=== PATIENT | male | born 1980 | race Two or more races ===

== ENCOUNTER 2024-10-15 10:36 | Emergency (ER) | payer OTHER ==
[~2024-10-15] VITALS: Ht 180.3 cm; Wt 86.2 kg
[2024-10-15] MEDS ORDERED: KETOROLAC TROMETHAMINE 30 MG VIAL IV ONE (11:00)
[2024-10-15] MEDS ORDERED: FAMOtidine 10 MG/ML (4ML VIAL) IV ONE (11:00)
[2024-10-15] MEDS ORDERED: TAMSULOSIN HCL 0.4 MG CAP PO ONE (11:00)
[2024-10-15] MEDS ORDERED: CEFTRIAXONE SODIUM 1,000 MG VIAL IV ONE (11:00)
[2024-10-15 11:51] LABS: HEMATOCRIT 42.8 % (39.0-48.0); HEMOGLOBIN 14.8 g/dL (13-16.00); MEAN CORPUSCULAR HEMOGLOBIN 30.4 pg (27.00-32.0); MEAN CORPUSCULAR HGB CONC 34.5 g/dl (32.0-36.0); PLATELET COUNT 238 K/uL (150-450); RED BLOOD COUNT 4.87 M/uL (4.00-6.00); RED CELL DISTRIBUTION WIDTH 13.4 % (11.5-14.5)
[2024-10-15 11:53] LABS: PH,URINE 5.5 (5.0-8.0); URINE APPEARANCE Clear; URINE BILIRRUBIN Negative (NEGATIVE); URINE BLOOD Small; URINE COLOR Yellow; URINE GLUCOSE Negative (NEGATIVE); URINE KETONE Negative (NEGATIVE); URINE LEUKOCYTE Negative; URINE NITRATE Negative; URINE PROTEIN Negative (NEGATIVE); URINE UROBILINOGEN 0.2 E.U./dl
[2024-10-15 11:54] LABS: URINE EPITHELIAL CELLS 1.8 uL (0.0-38.8); URINE RBC 5.5 uL (0.0-20.8); URINE WBC 2.5 uL (0.0-23.2)
[2024-10-15 12:11] LABS: URINE BACTERIA 1.2 uL (0.0-1933); URINE CAST 0.44 uL (0.0-1.40)
[2024-10-15 12:19] LABS: ALBUMIN 4.1 gm/dL (3.4-5.0); BILIRUBIN TOTAL 0.33 mg/dL (0.3-1.2); CREATININE SERUM 0.93 mg/dL (0.70-1.30); GFR 87.47; GLOBULINA 3.5 G/DL (2.4-3.5); POTASSIUM 4.35 mEq/L (3.5-5.1); TOTAL PROTEIN 7.6 gm/dL (6.4-8.2)
[2024-10-15 12:21] LABS: INR 1.02; PARTIAL THROMBOPLASTIN TIME 27.6 SECONDS (22.0-34.0); PROTHROMBIN TIME 11.1 SECONDS (9.0-11.5)
[2024-10-15] MEDS ORDERED: NORFLEX100MG PO (12:37)
== END 2024-10-15 13:01 | disposition home or self-care (01) ==
LOC: ER 10:37
PROVIDERS: General Practice
DX: R10.9 Unspecified abdominal pain (principal)